=== PATIENT | female | born 1955 | race Caucasian/White ===

== ENCOUNTER → 2016-07-01 | Outpatient (CLI) | payer OTHER ==
[2014-09-02 20:05] VITALS: BP 155/80
[2016-07-01 16:39] LABS: ALBUMIN 3.8 g/dL (3.4-5.0); BILIRUBIN,DIRECT 0.25 mg/dL (0-0.2); TOTAL PROTEIN 7.5 g/dL (6.4-8.2)
== END ==
LOC: LAB 15:50
PROVIDERS: ATTEND Internal Medicine Gastroenterology
DX: R10.13 Epigastric pain (principal)
CPT/HCPCS: 36415; 80076

== ENCOUNTER 2016-07-10 09:53 | Day surgery (SDC) | payer OTHER ==
[2016-07-10] MEDS ORDERED: D5 LR 1000 ML 1,000 ML IV ONE (10:14)
[2016-07-10] MEDS ORDERED: DIPRIVAN VIAL 20 ML ONE (11:19)
[2016-07-10 13:49] VITALS: BP 113/58
== END 2016-07-10 11:55 | disposition home or self-care (01) ==
LOC: SURG1 09:53
PROVIDERS: ATTEND Internal Medicine Gastroenterology
PROC: 0DB68ZX Excision of Stomach, Via Natural or Artificial Opening Endoscopic, Diagnostic (ICD-10-PCS; principal; 2016-07-10 12:30)
PROC: 0DJ08ZZ Inspection of Upper Intestinal Tract, Via Natural or Artificial Opening Endoscopic (ICD-10-PCS; principal; 2016-07-10 12:30)
PROC: 0D757ZZ Dilation of Esophagus, Via Natural or Artificial Opening (ICD-10-PCS; principal; 2016-07-10 12:30)
PROC: 0DB88ZX Excision of Small Intestine, Via Natural or Artificial Opening Endoscopic, Diagnostic (ICD-10-PCS; principal; 2016-07-10 12:30)
DX: R10.13 Epigastric pain (principal); R11.0 Nausea; K21.9 Gastro-esophageal reflux disease without esophagitis; K25.9 Gastric ulcer, unspecified as acute or chronic, without hemorrhage or perforation; K22.4 Dyskinesia of esophagus; K22.2 Esophageal obstruction; R13.19 Other dysphagia
CPT/HCPCS: A4217; J3490; J7120

== ENCOUNTER → 2016-07-16 | Outpatient (CLI) | payer OTHER ==
[2016-07-10 13:49] VITALS: BP 113/58
[2016-07-16 11:51] LABS: BASOPHILS # (AUTO) 0.1 X10^3/uL (0.0-0.1); BASOPHILS % (AUTO) 1.2 % (0.2-1.0); EOSINOPHILS # (AUTO) 0.1 x10^3/uL (0.0-0.2); EOSINOPHILS % (AUTO) 0.8 % (0.9-2.9); HEMATOCRIT 38.8 % (36.0-47.0); HEMOGLOBIN 13.2 g/dL (12.0-16.0); LYMPHOCYTES # (AUTO) 1.2 X10^3/uL (1.3-2.9); LYMPHOCYTES % (AUTO) 13.4 % (21.0-51.0); MEAN CORPUSCULAR HEMOGLOBIN 29.9 pg (27.0-34.0); MEAN CORPUSCULAR HGB CONC 34.2 g/dL (33.0-35.0); MEAN CORPUSCULAR VOLUME 87.6 fL (80.0-100.0); MEAN PLATELET VOLUME 9.6 fL (7.4-11.0); MONOCYTES # (AUTO) 0.6 x10^3/uL (0.3-0.8); NEUTROPHILS # (AUTO) 7.1 x10^3/uL (2.2-4.8); NEUTROPHILS % (AUTO) 77.6 % (42.0-75.0); PLATELET COUNT 257 X10^3/uL (150.0-450.0); RED BLOOD COUNT 4.43 X10^6/uL (3.5-5.4); RED CELL DISTRIBUTION WIDTH 14.6 % (11.6-16.5); WHITE BLOOD COUNT 9.1 X10^3/uL (3.6-10.0)
[2016-07-16 12:10] LABS: ALANINE AMINOTRANSFERASE 51 Units/L (12-78); ALBUMIN 3.9 g/dL (3.4-5.0); ALKALINE PHOSPHATASE 88 Units/L (46-116); AMYLASE 41 Units/L (25-115); ASPARTATE AMINO TRANSFERASE 38 Units/L (15-37); BLOOD UREA NITROGEN 12 mg/dL (7-18); CALCIUM 9.5 mg/dL (8.5-10.1); CARBON DIOXIDE 26.2 mmol/L (21-32); CHLORIDE 102 mmol/L (98-107); COR NA(FOR HYPERGLY) 141 mmol/L (136-145); CREATININE 0.93 mg/dL (0.55-1.02); GLUCOSE 145 mg/dL (65-99); LIPASE 148 Units/L (73-393); SODIUM 140 mmol/L (136-145); TOTAL PROTEIN 7.8 g/dL (6.4-8.2); eGFR BLACK RACES > 60 (>60); eGFR NON BLACK RACES > 60 (>60)
== END ==
LOC: LAB 11:26
PROVIDERS: ATTEND Internal Medicine Gastroenterology
DX: R10.84 Generalized abdominal pain (principal); R11.0 Nausea
CPT/HCPCS: 36415; 80053; 82150; 83690; 85025

== ENCOUNTER 2016-10-16 09:57 | Day surgery (SDC) | payer OTHER ==
[2016-10-16] MEDS ORDERED: D5 LR 1000 ML 1,000 ML IV ONE (10:02)
[2016-10-16] MEDS ORDERED: DIPRIVAN VIAL 20 ML ONE (10:46)
[2016-10-16 11:44] VITALS: BP 121/60
== END 2016-10-16 11:35 | disposition home or self-care (01) ==
LOC: SURG1 09:57
PROVIDERS: ATTEND Internal Medicine Gastroenterology
PROC: 0DJ08ZZ Inspection of Upper Intestinal Tract, Via Natural or Artificial Opening Endoscopic (ICD-10-PCS; principal; 2016-10-16 13:15)
PROC: 0DB68ZX Excision of Stomach, Via Natural or Artificial Opening Endoscopic, Diagnostic (ICD-10-PCS; principal; 2016-10-16 13:15)
DX: R10.13 Epigastric pain (principal); K21.9 Gastro-esophageal reflux disease without esophagitis; R11.0 Nausea; K25.9 Gastric ulcer, unspecified as acute or chronic, without hemorrhage or perforation; K20.8 Other esophagitis
CPT/HCPCS: A4217; J3490; J7120

== ENCOUNTER → 2016-10-29 | Outpatient (CLI) | payer OTHER ==
[2016-10-16 11:44] VITALS: BP 121/60
--- NOTE | 2016-10-29 15:57 | RAD ---
HISTORY: Right knee pain. Complete three view series of the right knee joint. Findings: Examination of the knee joint demonstrate no evidence for acute fracture or dislocation. The medial and lateral tibiofemoral compartments demonstrate moderate to severe joint space narrowing and osteop hyte formation; most severe in the medial knee compartment. There is patellar tendon thickening with central patellar tendon ossification. The findings are compatible with moderate to severe degenerativ e joint disease. The lateral radiograph demonstrates a very small suprapatellar joint effusion. Pat ellofemoral compartment also shows moderate to severe DJD with chondromalacia patella. There is mild soft tissue swelling about the knee joint without underlying bony injury or fracture seen. No aggress jesenia / destructive lytic bony lesions are seen. 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 No evidence for an ac alba fracture, subluxation, or lytic bony lesion. Reported By:
--- NOTE | 2016-10-30 07:20 | RAD ---
Three views of the left knee Indication: Bilateral knee pain. Findings: There is moderate joint space loss and osteophyte formation within the medial femorotibial compartment consistent with moderate osteoarthrosis. There is mild joint space loss and osteophyte fo rmation within the lateral femorotibial and patellofemoral compartments consistent with mild osteoart hrosis. There is a very small suprapatellar joint effusion. There is enthesopathic changes distal spencer driceps and proximal patellar tendon. No acute fracture, dislocation or localizing soft tissue swelling within the left knee. Impression: Tricompartmental osteoarthrosis most severely affecting the medial femorotibial compartme nt with a very small suprapatellar joint effusion. No acute fracture or dislocation. Reported By:
== END | disposition home or self-care (01) | DRG 554 ==
LOC: RAD 13:48
PROVIDERS: ATTEND Specialist
DX: M17.0 Bilateral primary osteoarthritis of knee (principal); M22.41 Chondromalacia patellae, right knee
CPT/HCPCS: 73564

== ENCOUNTER 2017-05-21 10:15 | Day surgery (SDC) | payer OTHER ==
[2017-05-21] MEDS ORDERED: D5 LR 1000 ML 1,000 ML IV ONE (10:43)
[2017-05-21] MEDS ORDERED: NS 1000 ML 1,000 ML ONE (10:57)
[2017-05-21] MEDS ORDERED: XYLOCAINE 2 % (PLAIN) ONE (12:04)
[2017-05-21] MEDS ORDERED: DIPRIVAN VIAL 10 ML ONE (12:04)
[2017-05-21 15:38] VITALS: BP 142/66
== END 2017-05-21 12:40 | disposition home or self-care (01) ==
LOC: SURG1 10:15
PROVIDERS: ATTEND Internal Medicine Gastroenterology
PROC: 0DB68ZX Excision of Stomach, Via Natural or Artificial Opening Endoscopic, Diagnostic (ICD-10-PCS; principal; 2017-05-21 15:00)
PROC: 0DJ08ZZ Inspection of Upper Intestinal Tract, Via Natural or Artificial Opening Endoscopic (ICD-10-PCS; principal; 2017-05-21 15:00)
DX: K25.9 Gastric ulcer, unspecified as acute or chronic, without hemorrhage or perforation (principal); R10.13 Epigastric pain; K21.9 Gastro-esophageal reflux disease without esophagitis; K29.60 Other gastritis without bleeding; K20.8 Other esophagitis
CPT/HCPCS: A4217; J2001; J3490; J7120